=== PATIENT | male | born 1970 | race Caucasian/White ===

== ENCOUNTER 2016-06-07 13:17 | Emergency (ER) | payer OTHER ==
[~2016-06-07] VITALS: Ht 185.4 cm; Wt 127.6 kg
[2016-06-07 13:22] VITALS: TEMP 36.9; Ht 185.4 cm; Wt 127.6 kg
[2016-06-07] MEDS ORDERED: MoRPHine SULFATE 10 MG/ML CARP/VIAL IV STA (13:31)
[2016-06-07] MEDS ORDERED: ONDANSETRON INJ 2 MG/ML 2 ML VIAL IV STA (13:31)
[2016-06-07] MEDS ORDERED: SODIUM CHLORIDE 0.9% 1000ML 1,000 ML IV ONE (13:45)
[2016-06-07] MEDS ORDERED: XYLOCAINE 1%/SOD BICARB 20 ML VIAL INFIL ONE (13:45)
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
[2016-06-07 14:41] LABS: BASO % 0.4 %; BASO ABS # 0.03 K/uL (0-0.2); COMPLETE YES; EOS % 1.3 %; HEMATOCRIT 44.1 % (42-52); IG% 0.3 %; LYMPH % 11.1 %; LYMPH ABS # 0.87 K/uL (1.2-3.4); MEAN CELL VOLUME 89.8 fL (80-100); MEAN CORPUSCULAR HEMOGLOBIN 32.6 pg (25-34); MEAN CORPUSCULAR HGB CONC 36.3 g/dl (32-36); MEAN PLATELET VOLUME 9.4 fL (7.4-10.4); MONO % 9.9 %; PLATELET COUNT 241 K/uL (130-400); RED BLOOD COUNT 4.91 M/uL (4.7-6.1); WHITE BLOOD COUNT 7.87 K/uL (4.8-10.8)
[2016-06-07 14:52] LABS: BUN/CREATININE RATIO 13.1 (10-20); CREATININE 1.1 mg/dl (0.60-1.40); POTASSIUM 3.8 mmol/L (3.5-5.1)
[2016-06-07 14:53] LABS: INR 1.1 (0.9-1.1); PARTIAL THROMBOPLASTIN RATIO 1.1; PROTHROMBIN TIME (PATIENT) 11.6 SECONDS (9.0-12.0)
[2016-06-07 15:07] LABS: CALCIUM 8.7 mg/dl (8.5-10.1)
[2016-06-07] MEDS ORDERED: HYDR-5688 PO (16:12)
[2016-06-07 16:30] VITALS: BP 107/82; PULSE 78; O2SAT 96
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
== END 2016-06-07 16:27 ==
LOC: C.EDA 13:22
DX: S01.81XA Laceration without foreign body of other part of head, initial encounter (principal); S00.83XA Contusion of other part of head, initial encounter; S09.91XA Unspecified injury of ear, initial encounter; Y08.89XA Assault by other specified means, initial encounter; Y92.149 Unspecified place in prison as the place of occurrence of the external cause